=== PATIENT | female | born 1990 | race Caucasian/White ===

== ENCOUNTER 2019-10-08 02:09 | Emergency (ER) | payer OTHER ==
[~2019-10-08] VITALS: Ht 154.9 cm; Wt 134.7 kg
[2019-10-08 02:16] VITALS: Ht 154.9 cm; Wt 134.7 kg
[2019-10-08 05:36] VITALS: BP 106/56
== END 2019-10-08 05:36 | disposition home or self-care (01) ==
LOC: ED 02:09
DX: J45.901 Unspecified asthma with (acute) exacerbation (principal); Z88.0 Allergy status to penicillin
CPT/HCPCS: J7512; J7644